=== PATIENT | female | born 1960 | race Caucasian/White ===

== ENCOUNTER → 2017-06-04 16:43 | Outpatient (CLI) | payer BC | END | disposition home or self-care (01) | LOC: D.MAMMO 14:45 | DX: Z12.31 Encounter for screening mammogram for malignant neoplasm of breast (principal) ==

== ENCOUNTER → 2017-06-26 13:18 | Outpatient (CLI) | payer BC | END | disposition home or self-care (01) | LOC: D.MAMMO 08:30 | DX: R92.8 Other abnormal and inconclusive findings on diagnostic imaging of breast (principal) ==

== ENCOUNTER → 2017-10-30 12:40 | Outpatient (CLI) | payer BC ==
--- NOTE | ~2017-10-30 | EC ---
PATIENT:GWEN HERNANDEZ DATE OF SERVICE: 10/30/17 SEX: F MEDICAL RECORD: [id number] DATE OF : [birth year] LOCATION:[facility] AGE OF PATIENT: 57 ADMISSION DATE: 10/30/17 REFERRING PHYSICIAN: INTERPRETING PHYSICIAN: ANDREW VILLAGOMEZ MD ECHOCARDIOGRAM REPORT ECHO CHARGES 4 ECHO COMPLETE Date: 10/30 CLINICAL DIAGNOSIS: CP/PALPITATIONS/DYSPNEA/HTN ECHOCARDIOGRAPHIC MEASUREMENTS (adult normal given) AC root (d.<3.7cm) 2.8 cm LV Septum d (<1.2 cm> 1.2 cm Valve Excursion 2.0 cm LV Septum (systole) 1.9 cm Left Atria (s.<4.0cm> 4.0 cm LVPW d(<1.2cm) 1.2 cm RV (d.<2.3cm) 2.9 cm LVPW (sytole) 2.0 cm LV diastole(<5.6CM) 4.5 cm MV E-F(>70mm/sec) cm LV systole 2.2 cm LVOT Diameter 2.1 cm MV exc.(>10mm) cm Est.ejection fraction (50-75%) % DOPPLER: LVIT cm/sec A 61.0 cm/sec E 75.0 cm/sec LA cm/sec RVSP 26.4 mmHg LVOT 107 cm/sec AOP1/2T m/s Asc. Ao 133 cm/sec RVOT 82.0 cm/sec RA cm/sec PA 97.0 cm/sec AV Gradient Peak 7.0 mmHg AV Mean 3.7 mmHg AV Area 2.5 cm MV Gradient Peak 2.5 mmHg MV Mean 0.78 mmHg MV Area cm COMMENTS: Smoking Pipe Mounter: Miguel VASQUEZDSOE Staging Technician: 4 Dr. Villagomez TAPE# PACS Pericardial Effusion N DATE OF SERVICE: PROCEDURE: Transthoracic echocardiogram. FINDINGS: 1. Left ventricle shows left ventricular hypertrophy with an ejection fraction 65%. Inflow characteristics are otherwise normal. 2. The left atrium is mildly dilated. 3. The mitral valve appears to be normal. 4. The tricuspid valve is normal with normal RVSP. ECHOCARDIOGRAM REPORT [id number] GWEN HERNANDEZ 5. The pericardium is normal. 6. The right ventricle is normal. 7. Right atrium is normal. Inflow characteristics were normal. CONCLUSIONS: The patient has evidence of left ventricular hypertrophy, otherwise normal echocardiogram. TRANSINT:[id number] Voice Confirmation ID: [id number] DOCUMENT ID: [id number] ANDREW VILLAGOMEZ MD at [id number] CC: [id number] DICTATION DATE: 10/31/17 0858 INFORMATICA: 10/31/17 1042 DEP CLI 10/30/17 [place] [id number] [place] [id number]
== END | disposition home or self-care (01) ==
LOC: D.ECHO 12:40
DX: R06.02 Shortness of breath (principal); I10 Essential (primary) hypertension; E78.5 Hyperlipidemia, unspecified; R07.9 Chest pain, unspecified; R00.2 Palpitations; G47.10 Hypersomnia, unspecified; R06.83 Snoring

== ENCOUNTER → 2017-11-12 19:16 | Outpatient (CLI) | payer BC | END | disposition home or self-care (01) | LOC: D.SLEEP 19:16 | DX: G47.10 Hypersomnia, unspecified (principal) ==

== ENCOUNTER → 2018-06-24 17:57 | Outpatient (CLI) | payer BC | END | disposition home or self-care (01) | LOC: D.MAMMO 15:00 | DX: Z12.31 Encounter for screening mammogram for malignant neoplasm of breast (principal) ==

== ENCOUNTER 2019-07-17 09:00 | Outpatient (CLI) | payer BC | END 2019-07-17 10:00 | disposition home or self-care (01) | LOC: D.MAMMO 09:00 | PROVIDERS: ATTEND Family Medicine | DX: Z12.31 Encounter for screening mammogram for malignant neoplasm of breast (principal) ==